=== PATIENT | male | born 1935 | race Caucasian/White ===

== ENCOUNTER 2019-09-06 13:53 | Inpatient (IN) | payer OTHER ==
[2019-09-06] MEDS ORDERED: Albuterol/Ipratropium 3.0-0.5 MG/3 ML Neb Soln NEB PRN (14:01)
[2019-09-06] MEDS ORDERED: DICLOFENAC GEL 1% TOP PRN (14:17)
[2019-09-06] MEDS ORDERED: Haloperidol 1 MG Tab PO PRN (14:18)
[2019-09-06] MEDS ORDERED: Morphine Oral Concentrate 20 MG/ML 30 ML Bottle PO PRN (14:19)
[2019-09-06] MEDS ORDERED: Hyoscyamine 0.125 MG Tab.SL SL PRN (14:20)
[2019-09-06] MEDS: Methadone 10 MG Tab PO SCH ×2 (14:52→22:15)
[2019-09-06] MEDS: Lidocaine 5% 700 MG Patch TOP SCH (14:55)
[2019-09-06] MEDS: Methadone 10 MG Tab PO PRN (17:55)
[2019-09-06] MEDS: Venlafaxine 75 MG Cap.ER PO SCH (21:15)
[2019-09-06] MEDS: Docusate Sodium 100 MG Cap PO SCH (21:15)
[2019-09-07] MEDS: Methadone 10 MG Tab PO PRN ×3 (00:51→20:24)
[2019-09-07] MEDS: Methadone 10 MG Tab PO SCH ×3 (05:43→22:32)
[2019-09-07] MEDS: Omeprazole 20 MG Cap.CR PO SCH (06:43)
[2019-09-07] MEDS: Lidocaine 5% 700 MG Patch TOP SCH ×2 (06:43→22:56)
[2019-09-07] MEDS: Furosemide 80 MG Tab PO SCH (09:33)
[2019-09-07] MEDS: Docusate Sodium 100 MG Cap PO SCH ×2 (09:34→20:26)
[2019-09-07] MEDS: Venlafaxine 75 MG Cap.ER PO SCH ×2 (09:34→20:24)
[2019-09-07] MEDS: Finasteride 5 MG Tab PO SCH (09:34)
[2019-09-07] MEDS: Docusate Sodium/Sennosides Tab PO SCH (22:53)
[2019-09-08] MEDS: Methadone 10 MG Tab PO PRN ×2 (02:32→10:27)
[2019-09-08] MEDS: Methadone 10 MG Tab PO SCH ×3 (06:39→21:30)
[2019-09-08] MEDS: Lidocaine 5% 700 MG Patch TOP SCH (06:40)
[2019-09-08] MEDS: Omeprazole 20 MG Cap.CR PO SCH (06:41)
[2019-09-08] MEDS: Venlafaxine 75 MG Cap.ER PO SCH ×2 (09:01→21:29)
[2019-09-08] MEDS: Furosemide 80 MG Tab PO SCH (09:01)
[2019-09-08] MEDS: Finasteride 5 MG Tab PO SCH (09:01)
[2019-09-08] MEDS: Docusate Sodium 100 MG Cap PO SCH ×2 (09:01→21:29)
[2019-09-08] MEDS: Docusate Sodium/Sennosides Tab PO SCH (09:02)
[2019-09-09] MEDS: Lidocaine 5% 700 MG Patch TOP SCH ×2 (06:40→11:36)
[2019-09-09] MEDS: Methadone 10 MG Tab PO SCH ×3 (06:40→21:53)
[2019-09-09] MEDS: Omeprazole 20 MG Cap.CR PO SCH (07:09)
[2019-09-09] MEDS: Venlafaxine 75 MG Cap.ER PO SCH ×2 (08:32→21:53)
[2019-09-09] MEDS: Finasteride 5 MG Tab PO SCH (08:32)
[2019-09-09] MEDS: Furosemide 80 MG Tab PO SCH (08:32)
[2019-09-09] MEDS: Docusate Sodium/Sennosides Tab PO SCH (08:33)
[2019-09-09] MEDS: Docusate Sodium 100 MG Cap PO SCH ×2 (08:33→21:52)
[2019-09-09] MEDS: Magnesium Hydroxide 400 MG/5 ML Susp 30 ML Cup PO ONE ×2 (13:53→14:07)
[2019-09-10] MEDS: Methadone 10 MG Tab PO PRN (04:22)
[2019-09-10] MEDS: Lidocaine 5% 700 MG Patch TOP SCH (06:37)
[2019-09-10] MEDS: Omeprazole 20 MG Cap.CR PO SCH (06:37)
[2019-09-10] MEDS: Methadone 10 MG Tab PO SCH ×2 (08:17→20:44)
[2019-09-10] MEDS: Venlafaxine 75 MG Cap.ER PO SCH ×2 (08:18→20:47)
[2019-09-10] MEDS: Furosemide 80 MG Tab PO SCH (08:18)
[2019-09-10] MEDS: Finasteride 5 MG Tab PO SCH (08:18)
[2019-09-10] MEDS: Docusate Sodium 100 MG Cap PO SCH ×2 (08:20→20:48)
[2019-09-10] MEDS: Docusate Sodium/Sennosides Tab PO SCH (09:28)
[2019-09-11] MEDS: Omeprazole 20 MG Cap.CR PO SCH (06:47)
[2019-09-11] MEDS: Lidocaine 5% 700 MG Patch TOP SCH (06:49)
[2019-09-11] MEDS: Methadone 10 MG Tab PO SCH (08:21)
[2019-09-11] MEDS: Finasteride 5 MG Tab PO SCH (08:22)
[2019-09-11] MEDS: Docusate Sodium 100 MG Cap PO SCH (08:22)
[2019-09-11] MEDS: Venlafaxine 75 MG Cap.ER PO SCH (08:22)
[2019-09-11] MEDS: Furosemide 80 MG Tab PO SCH (08:23)
[2019-09-11] MEDS: Docusate Sodium/Sennosides Tab PO SCH (10:50)
== END 2019-09-11 10:55 | disposition hospice, home (50) | DRG 951 ==
LOC: MW.MS 13:53
PROVIDERS: ADMIT Student in an Organized Health Care Education/Training Program; ATTEND Student in an Organized Health Care Education/Training Program
DX: Z75.5 Holiday relief care (principal)
CPT/HCPCS: A9270-GY; J7620-GY